=== PATIENT | female | born 1985 | race Caucasian/White ===

== ENCOUNTER → 2017-12-24 08:34 | Outpatient (CLI) | payer OTHER, SELFPAY ==
[2017-12-24 09:19] LABS: hCG Titer Quant., Serum 255 mIU/mL (<9 non-preg)
[2017-12-24 09:27] LABS: Free T3 2.2 pg/mL (2.18-3.98); T4 Free Direct 1.04 ng/dL (0.76-1.46); Thyroid Stim Hormone (TSH) 2.42 uIU/mL (0.358-3.74)
== END ==
PROVIDERS: Nurse Practitioner
DX: E03.9 Hypothyroidism, unspecified (principal); O03.9 Complete or unspecified spontaneous abortion without complication
CPT/HCPCS: 36415; 84439; 84443; 84481; 84702

== ENCOUNTER → 2017-12-30 09:03 | Outpatient (CLI) | payer OTHER, SELFPAY ==
[2017-12-30 09:41] LABS: hCG Titer Quant., Serum 19 mIU/mL (<9 non-preg)
== END ==
DX: O03.9 Complete or unspecified spontaneous abortion without complication (principal)
CPT/HCPCS: 36415; 84702

== ENCOUNTER → 2018-01-07 09:44 | Outpatient (CLI) | payer OTHER, SELFPAY ==
[2018-01-07 10:36] LABS: hCG Titer Quant., Serum 2 mIU/mL (<9 non-preg)
== END ==
DX: O03.9 Complete or unspecified spontaneous abortion without complication (principal)
CPT/HCPCS: 36415; 84702

== ENCOUNTER → 2018-01-14 16:26 | Outpatient (CLI) | payer OTHER, SELFPAY ==
[2018-01-14 17:22] LABS: Prolactin 12.3 ng/mL
[2018-01-17 16:08] LABS: Dilute Prothrombin Time (dPT) 42.6 sec (0.0-55.0); PTT-LA 43.3 sec (0.0-51.9); Thrombin Time 20.3 sec (0.0-23.0); dPT Confirm Ratio 0.92 Ratio (0.00-1.40)
[2018-01-19 11:33] LABS: Interpretation Comment: (.)
== END ==
DX: N96 Recurrent pregnancy loss (principal)
CPT/HCPCS: 36415; 84146

== ENCOUNTER → 2018-03-18 10:18 | Outpatient (CLI) | payer OTHER, SELFPAY ==
--- NOTE | 2018-03-18 10:20 | US_ITS ---
STUDY: THYROID ULTRASOUND REASON FOR EXAM: Female, 33 years old. History of thyroid nodule. TECHNIQUE: Ultrasound evaluation of the thyroid was performed with real-time and static najera-scale imaging. COMPARISON: None. FINDINGS: RIGHT LOBE: The right lobe of the thyroid gland measures 4.2 cm x 1.5 cm x 1.4 cm. There is a heterogeneous echotexture. There are no demonstrated solid, cystic or complex lesions. LEFT LOBE: The left lobe of the thyroid gland measures 4.8 cm x 2.2 cm x 1.9 cm. There is a heterogeneous echotexture. There is a 3.3 cm x 2.0 cm x 1.4 cm complex solid and cystic thyroid nodule in the mid and lower pole of the left lobe of the thyroid. A biopsy is recommended for further evaluation. ISTHMUS: The isthmus is thickened and measures 7.0 mm. There is a 1.4 cm x 1.3 cm x 0.6 cm hypoechoic solid nodule in the isthmus. The regional lymph nodes are normal. US/Thyroid IMPRESSION: 3.3 cm x 2.0 cm x 1.4 cm complex solid and cystic nodule in the mid and inferior pole of the left lobe of the thyroid as described. A biopsy is recommended for further evaluation. Enlargement of the isthmus with a solid nodule in the isthmus. Electronically Signed: Mario Cramer MD at 14:24 EDT Tel [phone], Service support ,
== END ==
PROVIDERS: Visit Provider Surgery
DX: E04.1 Nontoxic single thyroid nodule (principal)
CPT/HCPCS: 76536

== ENCOUNTER → 2018-08-23 14:28 | Outpatient (CLI) | payer BC, SELFPAY ==
--- NOTE | 2018-08-23 14:30 | RAD_ITS ---
STUDY: X-RAY CHEST REASON FOR EXAM: Female, 33 years old. Cough. History of bronchitis. TECHNIQUE: PA and lateral views of the chest. COMPARISON: Comparison is made with prior study dated January 24, 2010. FINDINGS: The lungs are clear and expanded. There is no demonstrated pleural abnormality. Normal size heart. Normal mediastinum and artis. Normal visualized pulmonary arteries. Normal visualized aortic arch and descending thoracic aorta. Normal visualized thoracic spine. Normal visualized ribs, clavicles, and shoulders. There is no demonstrated abnormality of the visualized soft tissue structures of the upper abdomen. RAD/Chest PA and Lateral IMPRESSION: Normal x-ray examination of the chest. Electronically Signed: Mario Cramer MD at 14:49 EDT Tel [phone], Service support ,
== END ==
PROVIDERS: Family Provider Student in an Organized Health Care Education/Training Program; PCP Student in an Organized Health Care Education/Training Program; Referring Provider Physician Assistant Surgical; Visit Provider Physician Assistant Surgical
DX: J40 Bronchitis, not specified as acute or chronic (principal)
CPT/HCPCS: 71046

== ENCOUNTER 2020-05-14 15:41 | Emergency (ER) | payer BC, SELFPAY ==
[2020-05-14 15:42] VITALS: BP 149/114; PULSE 141; RESP 20; TEMP 36.9; O2SAT 95; BMI 34.1
--- NOTE | 2020-05-14 15:48 | EKG12_ITS ---
Test Reason : PALPS Blood Pressure : / mmHG Vent. Rate : 126 BPM Atrial Rate : 126 BPM P-R Int : 150 ms QRS Dur : 084 ms QT Int : 302 ms P-R-T Axes : 045 007 014 degrees QTc Int : 437 ms Sinus tachycardia Otherwise normal ECG Confirmed by MAHNAZ TURK ([id number]), video news editor PENELOPE ARIAS ([id number]) on 05/20/2020 12:09:49 PM Referred By: RENEE Confirmed By:MAHNAZ TURK
--- NOTE | 2020-05-14 15:49 | CT_ITS ---
STUDY: CTA CHEST REASON FOR EXAM: Female, 35 years old. DIZZY LIGHT HEADED, ?PE, FEELS LIKE SHE HAS A FAST HEART BEAT RADIATION DOSAGE (If Supplied By Facility): CTDIvol = ( 14.25 ) mGy, DLP = ( 437.31 ) mGycm TECHNIQUE: The examination was performed with the intravenous administration of IV 100mL Isovue-370. Post-processing of the angiographic images was performed, with multiplanar reformation and 3D reconstruction. Individualized dose optimization techniques were used for this CT. COMPARISON: None. FINDINGS: Normal enhancement of the main pulmonary artery and right and left pulmonary arteries. Normal enhancement of the bilateral peripheral pulmonary arteries. There is no demonstrated pulmonary embolism. Normal thoracic aorta and visualized great vessels. There is no demonstrated aortic dissection. Normal heart size and pericardium. Normal mediastinum. Normal hilar regions. Normal visualized trachea and bronchi. The lungs are well expanded. Mild interstitial scarring is present in the medial aspect of the left lower lobe. No consolidation or pulmonary edema or pleural effusion. No lung nodules. Normal pleura. Normal chest wall structures. Normal osseous structures. Benign-appearing sclerosis and bony excrescence seen around the superior endplate and Holley''s canal vertebral canal in the T12 vertebral body. Unremarkable visualized upper abdomen. CT/CTA Chest W/WO Contrast IMPRESSION: 1. No demonstrated pulmonary embolism or arterial dissection. 2. Mild interstitial scarring is present in the medial aspect of the left lower lobe. 3. No consolidation or pulmonary edema or pleural effusion. No lung nodules. Electronically Signed: Joaquin Rodriguez MD at 17:12 EDT , Service support ,
--- NOTE | 2020-05-14 15:58 | ED.VIS.GEN ---
History of Present Illness Chief Complaint: Palpitations Informant: Patient Onset: Days Context: Gradual Onset Timing: Intermittent Current Severity: Moderate Maximum Severity: Moderate Narrative: The patient is an otherwise healthy female with history of hypothyroidism that presents to the emergency department with heart racing, shortness of breath, near syncope. Patient states that a few days ago, she felt mildly nauseated and had some abdominal cramping. She states her nausea had improved. And she was not feeling fatigued or short of breath. She states she went to work today, and felt like her heart was racing. She states she got lightheaded and felt like she was going to pass out. She states when she stands, she does feel short of breath. She states that she thought that her blood sugar may have been low so she did eat but it did not really change her symptoms. She denies any delaney chest pain. She is not had fevers or chills. She denies any weight loss or night sweats. She states she is otherwise been in her normal state of health. Prior similar symptoms: No Recent Illness/Hospitalization: No Past Medical History - Allergies and Home Meds Allergies/Adverse Reactions: Allergies No Known Allergies Allergy (Verified 05/14/20 15:43) Primary Care Physician: Ayo Knight MD [STAFF PHYSICIAN] - Prior records reviewed: Yes Past Medical History: - - Thyroid disease Surgical History: noncontributory Smoking Status: Never smoker Review of Systems General: Reports: Malaise. Denies: Chills, Fever, Sweats Eyes: Denies: Visual changes - bilaterally, Diplopia ENT: Denies: Rhinorrhea, Sore throat Cardiovascular: Reports: Palpitations. Denies: Chest pain Respiratory: Denies: Dyspnea, Cough, Dyspnea on exertion Gastrointestinal: Reports: Nausea. Denies: Abdominal pain, Vomiting, Diarrhea, Melena, Hematochezia Genitourinary: Denies: Dysuria, Hematuria, Frequency Musculoskeletal: Denies: Back pain, Extremity Pain Skin: Denies: Rash, Wounds Neurological: Denies: Headache, Weakness, Numbness Physical Exam Vital Signs/Narrative: Vital Signs Temp Pulse Resp BP Pulse Ox 05/14/20 15:42 98.4 F 141 H 20 H 149/114 H 95 Inital Vital Signs reviewed: Yes General: Well nourished, Well developed, No Acute Distress Head: Normocephalic, Atraumatic Eyes: Perrl, EOMI ENT: Moist mucous membranes, No rhinorrhea Neck: Supple, Nontender Cardiovascular: Regular rhythm, No murmurs, Tachycardia Respiratory: No distress, CTA bilaterally, Chest nontender Abdomen: Soft, Nontender, Nondistended, Normal bowel sounds Back: Nontender, Normal Inspection Extremities: Nontender, No edema Skin: Normal color, No rash Neurological: Alert, Oriented x3, Cranial nerves II-XII grossly intact, Normal Strength, Normal Sensation Psychological: Normal affect, Normal Mood Diagnostic/Tx/Re-eval Clinical Impression(s) from Imaging Studies Chest CTA 05/14/20 15:49 IMPRESSION: 1. No demonstrated pulmonary embolism or arterial dissection. 2. Mild interstitial scarring is present in the medial aspect of the left lower lobe. 3. No consolidation or pulmonary edema or pleural effusion. No lung nodules. Electronically Signed: Joaquin Rodriguez MD at 17:12 EDT , Service support , Abnormal Lab Results 05/14/20 05/14/20 05/14/20 15:55 15:55 15:55 WBC 8.1 RBC 4.79 Hgb 15.0 Hct 44.0 MCV 91.9 MCH 31.3 MCHC 34.1 RDW Std Deviation 39.6 RDW Coeff of Lukas 11.7 Plt Count 332 MPV 10.1 Immature Gran % (Auto) 0.200 Neut % (Auto) 60.2 Lymph % (Auto) 28.6 [place] % (Auto) 7.3 Eos % (Auto) 3.1 Baso % (Auto) 0.6 Absolute Neuts (auto) 4.9 Absolute Lymphs (auto) 2.32 Nucleated RBC % 0 Sodium 139 Potassium 3.4 L Chloride 108 H Carbon Dioxide 25.0 Anion Gap 6 BUN 12 Creatinine 0.84 Estim Creat Clear Calc 73.93 Est GFR (MDRD) Af Amer 100 Est GFR (MDRD) Non-Af 82 BUN/Creatinine Ratio 14.3 Glucose 111 H Calcium 8.6 Magnesium 2.1 Total Bilirubin 0.30 AST 18 ALT 34 Alkaline Phosphatase 56 Troponin I < 0.015 B-Natriuretic Peptide 17.5 Total Protein 7.8 Albumin 3.9 Globulin 3.9 Albumin/Globulin Ratio 1.0 TSH 1.51 Urine Test 05/14/20 16:50 WBC RBC Hgb Hct MCV MCH MCHC RDW Std Deviation RDW Coeff of Lukas Plt Count MPV Immature Gran % (Auto) Neut % (Auto) Lymph % (Auto) [place] % (Auto) Eos % (Auto) Baso % (Auto) Absolute Neuts (auto) Absolute Lymphs (auto) Nucleated RBC % Sodium Potassium Chloride Carbon Dioxide Anion Gap BUN Creatinine Estim Creat Clear Calc Est GFR (MDRD) Af Amer Est GFR (MDRD) Non-Af BUN/Creatinine Ratio Glucose Calcium Magnesium Total Bilirubin AST ALT Alkaline Phosphatase Troponin I B-Natriuretic Peptide Total Protein Albumin Globulin Albumin/Globulin Ratio TSH Urine Test Negative - Rhythm Strip Rhythm Strip: Sinus Tach Rate: 120 Ectopy: None - EKG Initial EKG Interpretation: No Acute Injury Pattern, Sinus Tachycardia Prior: No Prior Follow-up EKG Interpretation: Sinus Rhythm, Sinus Arrythmia Prior: Unchanged - Medical Decision Making The patient is a 35-year-old female with history of thyroid disease that presents to the emergency department with palpitations. Initially, in triage, her heart rate was 141. She has normal mental status. She is perfusing normally. EKG was obtained which showed sinus tachycardia at a rate of 26 without acute ischemic change. Broad metabolic work-up was pursued. Without any intervention, the patient's heart rate had decreased into the 90s. Repeat EKG shows sinus arrhythmia with a rate of 86 without acute ischemia. Metabolic panel was obtained. This is unremarkable. I obtained a CTA of the chest given the patient's near syncope and tachycardia. This was also negative. Her potassium was replaced because it was 3.4. I did have a long conversation with Dr. Knight about the patient. At this time, we are going to hold on any medication. She is going to be set up with a 48-hour Holter monitor and will be seen in the office for echo. She is comfortable with this plan of care. Impression 1. Sinus tachycardia 2. Generalized illness ED Disposition - Plan for ED Patient: Instructions: ED Tachycardia PAT Referrals: Ayo Knight MD [STAFF PHYSICIAN] -
[2020-05-14] MEDS: 0.9% Normal Saline 1,000 ML 1000 ML IV ×2 (16:09→17:14)
[2020-05-14 16:10] LABS: Absolute Lymphocyte Count 2.32 X10^3/uL (0.83-4.51); Absolute Neutrophil Count 4.9 X10^3/uL (2.0-7.7); Basophil# 0.05 X10^3/uL; Basophil% 0.6 % (0-1); Eosinophil# 0.25 X10^3/uL; Eosinophils% 3.1 % (0-5); Lymphocyte # 2.32 X10^3/ul (4.0); Lymphocyte % 28.6 % (19-41); Mean Corp Hgb Conc 34.1 g/dL (32-36); Mean Corpuscular Hgb 31.3 pg (27.0-32.0); Mean Corpuscular Volume 91.9 fL (81-99); Mean Platelet Vol. 10.1 fl (6.2-12.0); Monocyte# 0.59 X10^3/uL; Monocyte% 7.3 % (0-10); NRBC Flagged by Analyzer 0 % (0-5); Neutrophil # 4.87 X10^3/uL (2.7-7.7); Neutrophil % 60.2 % (47-70); Platelet Count 332 K/mm3 (150-450); RBC Distribution Width CV 11.7 % (11.6-14.6); RBC Distribution Width SD 39.6 fl (35.1-43.9); Red Blood Count 4.79 M/mm3 (4.2-5.4); White Blood Count 8.1 K/mm3 (4.4-11.0)
--- NOTE | 2020-05-14 16:19 | EKG12_ITS ---
Test Reason : REPEAT Blood Pressure : / mmHG Vent. Rate : 081 BPM Atrial Rate : 081 BPM P-R Int : 126 ms QRS Dur : 090 ms QT Int : 404 ms P-R-T Axes : 042 007 009 degrees QTc Int : 469 ms Normal sinus rhythm with sinus arrhythmia Normal ECG Confirmed by MAHNAZ TURK ([id number]), publishing editor PENELOPE ARIAS ([id number]) on 05/20/2020 12:14:44 PM Referred By: RENEE Confirmed By:MAHNAZ TURK
[2020-05-14 16:30] VITALS: BP 126/76; PULSE 76; RESP 16
[2020-05-14 16:38] LABS: AST(SGOT) 18 U/L (15-37); Alanine Aminotransfer ALT/SGPT 34 U/L (13-56); Albumin, Serum 3.9 g/dL (3.2-5.0); Alkaline Phosphatase 56 U/L (45-117); Anion Gap 6 (5-15); BUN 12 mg/dL (7-18); BUN/Creat Ratio 14.3 RATIO (10-20); Calcium,Total 8.6 mg/dL (8.5-10.1); Chloride 108 mmol/L (98-107); Creatinine, Serum 0.84 mg/dL (0.55-1.02); EST Glomerular Filtration Rate 82 mL/min (>60); Est Glom Filt Rate - Afr Amer 100 mL/min (>60); Estimated Creatinine Clearance 73.93 ml/min; Globulin 3.9 g/dL (2.2-4.2); Glucose 111 mg/dL (74-106); Magnesium 2.1 mg/dL (1.6-2.6); Potassium 3.4 mmol/L (3.5-5.1); Protein, Total 7.8 g/dL (6.4-8.2); Sodium Level 139 mmol/L (136-145); Thyroid Stim Hormone (TSH) 1.51 uIU/mL (0.358-3.74)
[2020-05-14 16:40] LABS: BNP,B-Type NATRIURETIC PEPTIDE 17.5 pg/mL (0-100)
[2020-05-14 17:13] VITALS: BP 135/83; PULSE 98; RESP 20; O2SAT 100
[2020-05-14 17:14] LABS: Internal QC Validated? YES +Cl - CLEAR BKGD; Pregnancy, Urine Negative Negative
[2020-05-14 18:21] VITALS: BP 130/80; PULSE 92; RESP 16; O2SAT 99
== END 2020-05-14 18:23 | disposition home or self-care (01) ==
LOC: ED 15:56
PROVIDERS: Emergency Provider Emergency Medicine; PCP Student in an Organized Health Care Education/Training Program
DX: R00.0 Tachycardia, unspecified (principal); E03.9 Hypothyroidism, unspecified; Z79.899 Other long term (current) drug therapy
CPT/HCPCS: 71275; 80053; 81025; 83735; 83880; 84443; 84484; 85025; 93005; 96360; 96361; 99285; J7030; Q9967; A4216

== ENCOUNTER → 2020-05-14 | Outpatient (CLI) | payer BC, SELFPAY ==
[2020-05-14 15:42] VITALS: BMI 34.1
== END | disposition home or self-care (01) ==
PROVIDERS: PCP Student in an Organized Health Care Education/Training Program; Visit Provider Internal Medicine Cardiovascular Disease
DX: R00.2 Palpitations (principal)
CPT/HCPCS: 93226

== ENCOUNTER 2020-11-14 10:00 | Outpatient (RCR) | payer BC, SELFPAY ==
[2020-07-04 15:53] VITALS: BMI 34.4
== END 2020-11-14 23:59 ==
LOC: IMMUN 10:00
PROVIDERS: PCP Student in an Organized Health Care Education/Training Program; Visit Provider Family Medicine
DX: Z23 Encounter for immunization (principal)
CPT/HCPCS: 0011A; 0012A; 91301

== ENCOUNTER 2022-03-23 01:58 | Emergency (ER) | payer OTHER, SELFPAY ==
[2022-03-23 01:58] VITALS: BP 157/114; PULSE 112; RESP 20; TEMP 36.8; O2SAT 98; BMI 39.1
--- NOTE | 2022-03-23 02:31 | EDS_ITS ---
HPI History of Present Illness Chief Complaint: Abd Pain Informant: patient Narrative Narrative: Patient presents with upper abdominal pain more on the right. Patient states that this afternoon she ate out at a restaurant. It was somewhat rich food. She had some abdominal pain and cramping mostly in the upper and upper right part of the abdomen. It went on for 1 to 2 hours. It then got better. After eating dinner it came back. Its been here waxing and waning and cramping ever since about 7 PM. No chest pain or trouble breathing. No pain in the lower abdomen or pelvis. No back or flank pain. She did vomit some bile a single time. She is still nauseated. No diarrhea. No urinary symptoms. Patient has been having episodes like this for about a year. She states normally they will last anywhere 1 to 4 hours and then go away. She has been trying to adjust diet and foods to see what is causing it. But this episode is lasting a lot longer than the others. It does not sound like she has had work- up for biliary disease or gallstones yet. [facility] Medical History Bronchitis Environmental allergies Fatigue Foreign body in left ear Hypothyroidism infertility procedures Palpitations PCOS (polycystic ovarian syndrome) Sinus tachycardia SOB (shortness of breath) Home Medications levothyroxine 100 mcg PO DAILY 05/14/20 [History Last Taken Unknown] ondansetron 4 mg PO Q8H PRN #10 tab 03/23/22 [Rx Last Taken Unknown] oxycodone-acetaminophen [Percocet] 1 tab PO Q6H PRN 3 Days #10 tab 03/23/22 [Rx Last Taken Unknown] Allergy/AdvReac Type Severity Reaction Status Date / Time No Known Allergies Allergy Verified 07/04/20 15:53 Family History Grandmother CVA (cerebral vascular accident) Heart disease Grandfather Heart disease Grandmother Valvular heart disease Atrial fibrillation Father Valvular heart disease History of aortic root repair Other Lung disease Myocardial infarction Surgical History H/O section Social History Smoking Status: Never smoker second hand exposure: No alcohol intake: never substance use type: does not use caffeine: Yes Type: carbonated beverages Number of servings: 1 and coffee Number of servings: 1 ROS ROS ED Constitutional Constitutional ED: Denies fever(s) or subjective Eyes Eyes: Denies blurry vision ENT ENT ED: Denies rhinorrhea or sore throat Cardiovascular Cardiovascular: Denies chest pain, palpitations or racing heartbeat Respiratory/Chest Respiratory/Chest: Denies cough, dyspnea or sputum Gastrointestinal Gastrointestinal: Reports abdominal pain, nausea and vomiting; Denies constipation, diarrhea or melena Genitourinary Genitourinary ED: Denies dysuria or hematuria Musculoskeletal Musculoskeletal: Denies back pain Integumentary Denies rash Neurologic Neurologic: Denies headache(s) Endocrine Endocrinology: Denies polydipsia or polyuria Allergic/Immunologic Allergic/Immunologic ED: Denies urticaria EXAM Physical Exam Const Vital Signs: 03/23/22 01:58 Temperature 98.2 F Temperature Source Oral Pulse Rate 112 H Respiratory Rate 20 H Blood Pressure 157/114 H Blood Pressure Mean 128 Pulse Ox 98 Oxygen Delivery Method Room Air Positive well nourished and well developed General Appearance ED: well developed and NAD; Negative for cyanotic or diaphoretic HEENT Reports moist mucous membranes Eyes General Eye ED: Negative for pale conjunctiva or scleral icterus Neck no JVD Chest Wall inspection of chest normal Resp normal respiratory effort and clear to auscultation bilaterally Effort and Inspection: Negative for pain with movement Auscultation: Negative for rales, rhonchi or wheezes Cardio regular rate and regular rhythm GI normal to inspection, nondistended, normoactive bowel sounds and non-distended GI Narrative: Abdomen does have some tenderness mostly toward the right upper quadrant and slightly epigastric. None anywhere else in the abdomen though. There is no rebound or guarding. James sign is equivocal. Palpation: soft Back/Spine no CVA tenderness Extremity General Extremety ED: Negative for tenderness Neuro oriented x3 Sensorium / Orientation: alert Psych mental status grossly normal Skin no rashes or lesions noted MDM MDM MDM Narrative Medical decision making narrative: Patient CBC is normal. Electrolytes and liver function test are all normal. Patient's recheck. Symptoms are resolved. Her abdomen is benign. She states nausea is 100% gone. She still has a small amount of soreness in the abdomen but is markedly improved. I talked options with the patient. I explained that I do not have the ability to get ultrasound here tonight. We could get a CAT scan but an ultrasound would likely be the ideal study for her. I could certainly keep her here overnight and we can get a CAT scan likely at about 7 or so in the morning. We could also have her follow-up with her private physician and have outpatient ultrasound. She is comfortable with this plan. She states she is feeling a lot better and has had episodes like this for a while. This 1 just lasted longer. I think this is a reasonable option. If she develops worsening pain, fevers, vomiting or other symptoms she should return. I will get her some medicine for pain and nausea in case she needs it at home but at this point she would not take it. Lab Data Attestation: I reviewed the patient's lab results. Labs: Laboratory Results - last 24 hr 03/23/22 03/23/22 02:10 02:10 WBC 10.1 RBC 4.76 Hgb 14.5 Hct 43.4 MCV 91.2 MCH 30.5 MCHC 33.4 RDW Std Deviation 40.0 RDW Coeff of Lukas 12.0 Plt Count 324 MPV 10.2 Immature Gran % (Auto) 0.400 Neut % (Auto) 59.6 Lymph % (Auto) 25.3 [place] % (Auto) 7.9 Eos % (Auto) 6.1 H Baso % (Auto) 0.7 Absolute Neuts (auto) 6.0 Absolute Lymphs (auto) 2.55 Nucleated RBC % 0 Sodium 138 Potassium 4.0 Chloride 104 Carbon Dioxide 29.0 Anion Gap 5 BUN 17 Creatinine 0.87 Estim Creat Clear Calc 70.02 Est GFR (MDRD) Af Amer 94 Est GFR (MDRD) Non-Af 78 BUN/Creatinine Ratio 19.5 Glucose 114 H Calcium 9.4 Total Bilirubin 0.30 AST 21 ALT 31 Alkaline Phosphatase 81 Total Protein 7.2 Albumin 3.6 Globulin 3.6 Albumin/Globulin Ratio 1.0 Lipase 173 Discharge Plan Triage Chief Complaint: Abd Pain ED Provider: Hi Bryan Dx/Rx/DC Orders Clinical Impression: Biliary colic Instructions: ED Gallstones with Biliary Colic Prescriptions: New oxycodone-acetaminophen [Percocet] 5-325 mg tablet 1 tab PO Q6H PRN (Reason: pain) 3 Days Qty: 10 RF: 0 ondansetron 4 mg tablet,disintegrating 4 mg PO Q8H PRN (Reason: nausea and vomiting) Qty: 10 RF: 0 No Action levothyroxine 100 MCG tablet 100 mcg PO DAILY RF: 0 Primary Care Provider: Patrick Tejada Referrals: Dariel Phelan MD [STAFF PHYSICIAN] - As soon as possible Patrick Tejada DO [Primary Care Provider] - As soon as possible Disposition Disposition: Home, Self Care
[2022-03-23] MEDS: 0.9% Normal Saline 1,000 ML 1000 ML IV (02:39)
[2022-03-23] MEDS: Ketorolac 15 MG/ML Vial IV (02:40)
[2022-03-23] MEDS: Ondansetron 4 MG/2 ML Vial IV (02:40)
[2022-03-23 02:43] LABS: Absolute Lymphocyte Count 2.55 X10^3/uL (0.83-4.51); Basophil# 0.07 X10^3/uL; Basophil% 0.7 % (0-1); Eosinophil# 0.61 X10^3/uL; Eosinophils% 6.1 % (0-5); Hematocrit 43.4 % (37-47); Hemoglobin 14.5 g/dL (12.0-15.0); Lymphocyte # 2.55 X10^3/ul (0.83-4.51); Lymphocyte % 25.3 % (19-41); Mean Corp Hgb Conc 33.4 g/dL (32-36); Mean Corpuscular Hgb 30.5 pg (27.0-32.0); Mean Corpuscular Volume 91.2 fL (81-99); Mean Platelet Vol. 10.2 fl (6.2-12.0); Monocyte# 0.79 X10^3/uL; Monocyte% 7.9 % (0-10); NRBC Flagged by Analyzer 0 % (0-5); Neutrophil % 59.6 % (47-70); Platelet Count 324 K/mm3 (150-450); Red Blood Count 4.76 M/mm3 (4.2-5.4); White Blood Count 10.1 K/mm3 (4.4-11.0)
[2022-03-23 03:00] LABS: AST(SGOT) 21 U/L (15-37); Alanine Aminotransfer ALT/SGPT 31 U/L (13-56); Albumin, Serum 3.6 g/dL (3.2-5.0); Alkaline Phosphatase 81 U/L (45-117); Anion Gap 5 (5-15); BUN 17 mg/dL (7-18); BUN/Creat Ratio 19.5 RATIO (10-20); Calcium,Total 9.4 mg/dL (8.5-10.1); Chloride 104 mmol/L (98-107); Creatinine, Serum 0.87 mg/dL (0.55-1.02); EST Glomerular Filtration Rate 78 mL/min (>60); Est Glom Filt Rate - Afr Amer 94 mL/min (>60); Estimated Creatinine Clearance 70.02 ml/min; Globulin 3.6 g/dL (2.2-4.2); Glucose 114 mg/dL (74-106); Lipase 173 U/L (73-393); Protein, Total 7.2 g/dL (6.4-8.2); Sodium Level 138 mmol/L (136-145)
[2022-03-23 04:17] VITALS: BP 130/83; PULSE 67; RESP 16; O2SAT 96
== END 2022-03-23 04:20 | disposition home or self-care (01) ==
PROVIDERS: Emergency Provider Emergency Medicine; PCP Student in an Organized Health Care Education/Training Program; Visit Provider Emergency Medicine
DX: K80.50 Calculus of bile duct without cholangitis or cholecystitis without obstruction (principal); R11.14 Bilious vomiting; E03.9 Hypothyroidism, unspecified
CPT/HCPCS: 80053; 83690; 85025; 96361; 96374; 96375; 99283; A4216; J2405

== ENCOUNTER 2022-06-01 04:48 | Emergency (ER) | payer OTHER, SELFPAY ==
[2022-06-01 04:51] VITALS: BP 151/122; PULSE 113; RESP 20; TEMP 36.9; O2SAT 99; BMI 37.8
--- NOTE | 2022-06-01 05:13 | US_ITS ---
STUDY: FIRST TRIMESTER OBSTETRICAL ULTRASOUND REASON FOR EXAM: Female, 37 years old RLQ pain with -- slight spotting -- [id number] LMP: Unknown. TECHNIQUE: Transabdominal and Transvaginal TECHNICAL QUALITY: Adequate. PRIOR ULTRASOUND: None. FINDINGS: There is no demonstrated intrauterine or extrauterine gestational sac. There is no demonstrated embryo ( pole). The uterus measures 10.6 x 7.2 x 5.4 cm. There is no demonstrated uterine fibroid. The cervix is closed. The right ovary measures 4.8 x 4.1 x 2.6 cm. There is a simple 2.2 x 2.1 x 1.2 cm cyst. There is no visualized right adnexal mass or complex lesion. The left ovary is not visualized There is minimal fluid in the cul de sac, likely physiologic. US/Transvaginal w/Preg US IMPRESSION: No sonographic evidence of intra or extrauterine gestation. Simple right ovarian cyst, no suspicious adnexal mass, there is a small amount of free fluid which is likely physiologic. Left ovary not visualized Electronically Signed: Nicholas Perez MD at 8:14 EDT ,
[2022-06-01 05:29] LABS: Mucous, Urine 0 SEEN /hpf (<or=2+); Red Blood Cells-Urine 0 SEEN /hpf (0-5); White Blood Cells 0 SEEN /hpf (0-5)
[2022-06-01 05:31] LABS: Absolute Lymphocyte Count 2.31 X10^3/uL (0.83-4.51); Absolute Neutrophil Count 5.7 X10^3/uL (2.0-7.7); Basophil# 0.04 X10^3/uL; Basophil% 0.4 % (0-1); Eosinophil# 0.23 X10^3/uL; Eosinophils% 2.6 % (0-5); Hematocrit 41.9 % (37-47); Hemoglobin 14.1 g/dL (12.0-15.0); Lymphocyte # 2.31 X10^3/ul (0.83-4.51); Lymphocyte % 25.7 % (19-41); Mean Corp Hgb Conc 33.7 g/dL (32-36); Mean Corpuscular Hgb 31.1 pg (27.0-32.0); Mean Corpuscular Volume 92.3 fL (81-99); Mean Platelet Vol. 10.2 fl (6.2-12.0); Monocyte# 0.72 X10^3/uL; NRBC Flagged by Analyzer 0 % (0-5); Neutrophil # 5.65 X10^3/uL (2.7-7.7); Neutrophil % 62.9 % (47-70); Platelet Count 298 K/mm3 (150-450); RBC Distribution Width CV 12.5 % (11.6-14.6); RBC Distribution Width SD 42.4 fl (35.1-43.9); Red Blood Count 4.54 M/mm3 (4.2-5.4)
[2022-06-01 05:53] LABS: Color, Urine Yellow (Yellow); Glucose, Dipstick Normal (Normal); Ketone-Dipstick Negative (Negative); Leukocyte Esterase-Dipstick Negative /ul (Negative); Nitrite-Dipstick Negative (Negative); Occult Blood-Urine 25 /ul (Negative); Protein-Dipstick Negative (Negative); Urine Bilirubin Dipstick Negative (Negative); Urine Clarity Clear (Clear); Urine Urobilinogen Normal (Normal)
[2022-06-01 05:59] LABS: Bacteria 1+ /hpf (None Seen); Squamous Epithelial Cells - UA 0-5 SEEN /hpf (5-10)
[2022-06-01 06:03] LABS: Anion Gap 7 (5-15); BUN 11 mg/dL (7-18); BUN/Creat Ratio 15.7 RATIO (10-20); Calcium,Total 8.5 mg/dL (8.5-10.1); Chloride 103 mmol/L (98-107); EST Glomerular Filtration Rate 100 mL/min (>60); Est Glom Filt Rate - Afr Amer 121 mL/min (>60); Estimated Creatinine Clearance 87.03 ml/min; Glucose 117 mg/dL (74-106); Potassium 3.6 mmol/L (3.5-5.1); Sodium Level 136 mmol/L (136-145)
--- NOTE | 2022-06-01 06:22 | EDS_ITS ---
HPI HPI - Female History of Present Illness Chief Complaint: Female C/O Narrative Narrative: Patient is a 37-year-old female with past medical history of hypothyroidism who is a G6, P1 female with 4 previous spontaneous abortions. She states she is approximately 5 weeks and states she has been doing well but noticed that her last hCG value is not doubled. She states that this morning she awoke from sleep and has sharp stabbing pain in the right lower quadrant. She states after the pain came on she did have a bout of nausea and vomiting. She reports that based on her history she is concerned that she could be miscarrying or have an ectopic as she has not experienced this type of pain with her previous miscarriages and secondary to this comes in for evaluation. The patient denies any fevers or chills she denies any vaginal bleeding or discharge and she denies any dysuria PFSH PFSH Medical History Bronchitis Environmental allergies Fatigue Foreign body in left ear Hypothyroidism infertility procedures Palpitations PCOS (polycystic ovarian syndrome) Sinus tachycardia SOB (shortness of breath) Home Medications levothyroxine 100 mcg tablet 100 mcg PO DAILY 05/14/20 [History Last Taken Unknown] Allergy/AdvReac Type Severity Reaction Status Date / Time No Known Allergies Allergy Verified 07/04/20 15:53 Family History Grandmother CVA (cerebral vascular accident) Heart disease Grandfather Heart disease Grandmother Valvular heart disease Atrial fibrillation Father Valvular heart disease History of aortic root repair Other Lung disease Myocardial infarction Surgical History H/O section Social History Smoking Status: Never smoker second hand exposure: No alcohol intake: never substance use type: does not use caffeine: Yes Type: carbonated beverages Number of servings: 1 and coffee Number of servings: 1 ROS ROS ED Constitutional Constitutional ED: Denies chills or fever(s) ENT ENT ED: Denies sore throat Cardiovascular Cardiovascular: Denies chest pain Respiratory/Chest Respiratory/Chest: Denies cough or dyspnea Gastrointestinal Gastrointestinal: Reports abdominal pain, nausea and vomiting; Denies diarrhea Genitourinary Genitourinary ED: Denies dysuria or hematuria Musculoskeletal Musculoskeletal: Denies myalgias Integumentary Denies rash Neurologic Neurologic: Denies headache(s) Hematologic/Lymphatic Hematologic/Lymphatic: Denies easy bleeding or easy bruising EXAM Physical Exam Const Vital Signs: 06/01/22 04:51 Temperature 98.4 F Temperature Source Oral Pulse Rate 113 H Respiratory Rate 20 H Blood Pressure 151/122 H Blood Pressure Mean 131 Pulse Ox 99 Oxygen Delivery Method Room Air Positive well nourished and well developed General Appearance ED: well developed Eyes PERRL and EOMs intact bilaterally Neck supple Resp normal respiratory effort and clear to auscultation bilaterally Cardio regular rate and regular rhythm Rate: other Other Details: Radial pulses are plus 2 out of 4 bilaterally are equal and symmetric GI non-distended GI Narrative: Abdomen is soft and nondistended with normoactive bowel sounds. There is pain on palpation in the right lower quadrant with voluntary guarding. No rebound or rigidity. No pulsatile mass Auscultation: normoactive bowel sounds Palpation: soft Back/Spine no CVA tenderness Extremity normal to inspection Extremity Narrative: No asymmetric edema no pitting edema negative Homans' sign bilaterally Neuro oriented x3 and CN's II-XII intact bilaterally Sensorium / Orientation: alert Psych mental status grossly normal Skin no rashes or lesions noted MDM MDM MDM Narrative Medical decision making narrative: Patient arrived to the ER afebrile but had sudden onset right lower quadrant pain. There is concern this could be an obstructed kidney stone versus intestinal infection versus ovarian cyst or ectopic . Secondary to this basic blood work and ultrasound were obtained. Labs revealed no clinically significant finding. The patient was reevaluated after this and she states she has had resolution of her abdominal pain. At this time ultrasound is pending. I believe that based on her laboratory findings that if her ultrasound does not show changes concerning for acute appendicitis and her pain remains resolved that she will be otherwise safe for discharge with outpatient [facility] INSPECTOR follow-up. The patient will be signed out to the oncoming provider Dr. Garcia pending ultrasound results Lab Data Attestation: I reviewed the patient's lab results. Labs: Laboratory Results - last 24 hr 06/01/22 06/01/22 06/01/22 05:04 05:04 05:04 WBC 9.0 RBC 4.54 Hgb 14.1 Hct 41.9 MCV 92.3 MCH 31.1 MCHC 33.7 RDW Std Deviation 42.4 RDW Coeff of Lukas 12.5 Plt Count 298 MPV 10.2 Immature Gran % (Auto) 0.400 Neut % (Auto) 62.9 Lymph % (Auto) 25.7 [place] % (Auto) 8.0 Eos % (Auto) 2.6 Baso % (Auto) 0.4 Absolute Neuts (auto) 5.7 Absolute Lymphs (auto) 2.31 Nucleated RBC % 0 Sodium 136 Potassium 3.6 Chloride 103 Carbon Dioxide 26.0 Anion Gap 7 BUN 11 Creatinine 0.70 Estim Creat Clear Calc 87.03 Est GFR (MDRD) Af Amer 121 Est GFR (MDRD) Non-Af 100 BUN/Creatinine Ratio 15.7 Glucose 117 H Calcium 8.5 HCG, Quant 1835 H Urine Color Urine Clarity Urine pH Ur Specific [place] Urine Protein Urine Glucose (UA) Urine Ketones Urine Occult Blood Urine Nitrite Urine Bilirubin Urine Urobilinogen Ur Leukocyte Esterase Urine RBC Urine WBC Ur Squamous Epith Cells Urine Bacteria Urine Mucus Blood Type 06/01/22 06/01/22 05:10 05:20 WBC RBC Hgb Hct MCV MCH MCHC RDW Std Deviation RDW Coeff of Lukas Plt Count MPV Immature Gran % (Auto) Neut % (Auto) Lymph % (Auto) [place] % (Auto) Eos % (Auto) Baso % (Auto) Absolute Neuts (auto) Absolute Lymphs (auto) Nucleated RBC % Sodium Potassium Chloride Carbon Dioxide Anion Gap BUN Creatinine Estim Creat Clear Calc Est GFR (MDRD) Af Amer Est GFR (MDRD) Non-Af BUN/Creatinine Ratio Glucose Calcium HCG, Quant Urine Color Yellow Urine Clarity Clear Urine pH 6.0 Ur Specific [place] 1.020 Urine Protein Negative Urine Glucose (UA) Normal Urine Ketones Negative Urine Occult Blood 25 H Urine Nitrite Negative Urine Bilirubin Negative Urine Urobilinogen Normal Ur Leukocyte Esterase Negative Urine RBC 0 SEEN Urine WBC 0 SEEN Ur Squamous Epith Cells 0-5 SEEN Urine Bacteria 1+ Urine Mucus 0 SEEN Blood Type O POSITIVE Discharge Plan Triage Chief Complaint: Female C/O ED Provider: Harvey Appiah Dx/Rx/DC Orders Prescriptions: No Action levothyroxine 100 MCG tablet 100 mcg PO DAILY Primary Care Provider: Patrick Tejada Referrals: Patrick Tejada, [Primary Care Provider] -
[2022-06-01 06:27] LABS: hCG Titer Quant., Serum 1835 mIU/mL (1-3)
[2022-06-01 06:50] VITALS: PULSE 80; RESP 18; O2SAT 98
--- NOTE | 2022-06-01 09:37 | EDS_ITS ---
HPI HPI - Female History of Present Illness Chief Complaint: Female C/O PFSH PFSH Medical History Bronchitis Environmental allergies Fatigue Foreign body in left ear Hypothyroidism infertility procedures Palpitations PCOS (polycystic ovarian syndrome) Sinus tachycardia SOB (shortness of breath) Home Medications levothyroxine 100 mcg tablet 100 mcg PO DAILY 05/14/20 [History Last Taken Unknown] Allergy/AdvReac Type Severity Reaction Status Date / Time No Known Allergies Allergy Verified 07/04/20 15:53 Family History Grandmother CVA (cerebral vascular accident) Heart disease Grandfather Heart disease Grandmother Valvular heart disease Atrial fibrillation Father Valvular heart disease History of aortic root repair Other Lung disease Myocardial infarction Surgical History H/O section Social History Smoking Status: Never smoker second hand exposure: No alcohol intake: never substance use type: does not use caffeine: Yes Type: carbonated beverages Number of servings: 1 and coffee Number of servings: 1 EXAM Physical Exam Const Vital Signs: 06/01/22 04:51 06/01/22 06:50 Temperature 98.4 F Temperature Source Oral Pulse Rate 113 H 80 Respiratory Rate 20 H 18 Blood Pressure 151/122 H Blood Pressure Mean 131 Pulse Ox 99 98 Oxygen Delivery Method Room Air Room Air [facility] Lab Data Labs: Laboratory Results - last 24 hr 06/01/22 06/01/22 06/01/22 05:04 05:04 05:04 WBC 9.0 RBC 4.54 Hgb 14.1 Hct 41.9 MCV 92.3 MCH 31.1 MCHC 33.7 RDW Std Deviation 42.4 RDW Coeff of Lukas 12.5 Plt Count 298 MPV 10.2 Immature Gran % (Auto) 0.400 Neut % (Auto) 62.9 Lymph % (Auto) 25.7 Power % (Auto) 8.0 Eos % (Auto) 2.6 Baso % (Auto) 0.4 Absolute Neuts (auto) 5.7 Absolute Lymphs (auto) 2.31 Nucleated RBC % 0 Sodium 136 Potassium 3.6 Chloride 103 Carbon Dioxide 26.0 Anion Gap 7 BUN 11 Creatinine 0.70 Estim Creat Clear Calc 87.03 Est GFR (MDRD) Af Amer 121 Est GFR (MDRD) Non-Af 100 BUN/Creatinine Ratio 15.7 Glucose 117 H Calcium 8.5 HCG, Quant 1835 H Urine Color Urine Clarity Urine pH Ur Specific [place] Urine Protein Urine Glucose (UA) Urine Ketones Urine Occult Blood Urine Nitrite Urine Bilirubin Urine Urobilinogen Ur Leukocyte Esterase Urine RBC Urine WBC Ur Squamous Epith Cells Urine Bacteria Urine Mucus Blood Type 06/01/22 06/01/22 05:10 05:20 WBC RBC Hgb Hct MCV MCH MCHC RDW Std Deviation RDW Coeff of Lukas Plt Count MPV Immature Gran % (Auto) Neut % (Auto) Lymph % (Auto) Power % (Auto) Eos % (Auto) Baso % (Auto) Absolute Neuts (auto) Absolute Lymphs (auto) Nucleated RBC % Sodium Potassium Chloride Carbon Dioxide Anion Gap BUN Creatinine Estim Creat Clear Calc Est GFR (MDRD) Af Amer Est GFR (MDRD) Non-Af BUN/Creatinine Ratio Glucose Calcium HCG, Quant Urine Color Yellow Urine Clarity Clear Urine pH 6.0 Ur Specific [place] 1.020 Urine Protein Negative Urine Glucose (UA) Normal Urine Ketones Negative Urine Occult Blood 25 H Urine Nitrite Negative Urine Bilirubin Negative Urine Urobilinogen Normal Ur Leukocyte Esterase Negative Urine RBC 0 SEEN Urine WBC 0 SEEN Ur Squamous Epith Cells 0-5 SEEN Urine Bacteria 1+ Urine Mucus 0 SEEN Blood Type O POSITIVE Radiography Diagnostic Testing: Clinical Impression(s) from Imaging Studies Obstetrics Ultrasound 06/01/22 05:13 IMPRESSION: No sonographic evidence of intra or extrauterine gestation. Simple right ovarian cyst, no suspicious adnexal mass, there is a small amount of free fluid which is likely physiologic. Left ovary not visualized Electronically Signed: Nicholas Perez MD at 8:14 EDT Reading Location ID and State: [facility] / [place] , Service support , Discharge Plan Triage Chief Complaint: Female C/O ED Provider: Harvey Appiah Dx/Rx/DC Orders Clinical Impression: Pelvic pain in patient at greater than 20 weeks gestation, , threatened Instructions: ED Abdominal Pain, Early , ED Possible Miscarriage ... Prescriptions: No Action levothyroxine 100 MCG tablet 100 mcg PO DAILY Primary Care Provider: Patrick Tejada Referrals: Patrick Tejada DO [Primary Care Provider] - Gela Arthur DO [Med Staff - Active Staff] - As soon as possible Activity Restrictions/Additional Instructions: [facility] office should be contacting you today to schedule an appointment for another 2 days. If you have worsening pain or worsening symptoms please call your MIXOLOGIST and then return to the emergency room. Your quant today was [phone]. Disposition Disposition: Home, Self Care
[2022-06-01 09:51] VITALS: BP 117/75; PULSE 77; RESP 18; O2SAT 97
== END 2022-06-01 09:57 | disposition home or self-care (01) ==
PROVIDERS: Emergency Provider Emergency Medicine; PCP Student in an Organized Health Care Education/Training Program; Visit Provider Emergency Medicine
DX: O20.0 Threatened abortion (principal); R10.31 Right lower quadrant pain; O99.281 Endocrine, nutritional and metabolic diseases complicating pregnancy, first trimester; Z3A.01 Less than 8 weeks gestation of pregnancy; R10.2 Pelvic and perineal pain; E03.9 Hypothyroidism, unspecified; O09.511 Supervision of elderly primigravida, first trimester; O99.891 Other specified diseases and conditions complicating pregnancy; O21.9 Vomiting of pregnancy, unspecified; Z79.899 Other long term (current) drug therapy
CPT/HCPCS: 76817; 80048; 81001; 84702; 85025; 86900; 86901; 99282; A4216

== ENCOUNTER 2024-03-23 08:56 | Emergency (ER) | payer OTHER, SELFPAY ==
[2024-03-23 08:57] VITALS: BP 148/100; PULSE 97; RESP 14; TEMP 36.6; O2SAT 98; BMI 32.6
[2024-03-23 09:33] LABS: Bacteria 0 SEEN /hpf (None Seen); Mucous, Urine 0 SEEN /hpf (<or=2+); Red Blood Cells-Urine 0 SEEN /hpf (0-5); White Blood Cells 0 SEEN /hpf (0-5)
[2024-03-23 09:37] LABS: Absolute Lymphocyte Count 1.66 X10^3/uL (0.83-4.51); Absolute Neutrophil Count 5.2 X10^3/uL (2.0-7.7); Basophil# 0.05 X10^3/uL; Basophil% 0.6 % (0-1); Eosinophil# 0.21 X10^3/uL; Eosinophils% 2.7 % (0-5); Hematocrit 43.7 % (37-47); Hemoglobin 14.6 g/dL (12.0-15.0); Internal QC Validated? YES +Cl - CLEAR BKGD; Lymphocyte # 1.66 X10^3/ul (0.83-4.51); Lymphocyte % 21.5 % (19-41); Mean Corp Hgb Conc 33.4 g/dL (32-36); Mean Corpuscular Hgb 30.4 pg (27.0-32.0); Mean Corpuscular Volume 90.9 fL (81-99); Mean Platelet Vol. 9.8 fl (6.2-12.0); Monocyte% 7.8 % (0-10); NRBC Flagged by Analyzer 0 % (0-5); Neutrophil # 5.18 X10^3/uL (2.7-7.7); Platelet Count 264 K/mm3 (150-450); Pregnancy, Serum, hCG Quali. NEGATIVE Negative; RBC Distribution Width CV 12.2 % (11.6-14.6); RBC Distribution Width SD 40.8 fl (35.1-43.9); Record Kit Lot#, Serum Preg. HCG0000735774; Red Blood Count 4.81 M/mm3 (4.2-5.4); White Blood Count 7.7 K/mm3 (4.4-11.0)
[2024-03-23 09:39] LABS: Color, Urine Yellow (Yellow); Glucose, Dipstick Normal (Normal); Ketone-Dipstick 5 mg/dl (Negative); Leukocyte Esterase-Dipstick Negative /ul (Negative); Nitrite-Dipstick Negative (Negative); Occult Blood-Urine Negative /ul (Negative); Protein-Dipstick 15 mg/dl (Negative); Urine Bilirubin Dipstick Negative (Negative); Urine Clarity Clear (Clear); Urine Urobilinogen 1 mg/dl (Normal); Urine pH 6.5 (5.0 - 8.0)
[2024-03-23 09:43] LABS: Anion Gap 5 (5-15); BUN 13 mg/dL (7-18); BUN/Creat Ratio 16.3 RATIO (10-20); Calcium,Total 9.1 mg/dL (8.5-10.1); Chloride 106 mmol/L (98-107); EST Glomerular Filtration Rate 85 mL/min (>60); Est Glom Filt Rate - Afr Amer 103 mL/min (>60); Estimated Creatinine Clearance 93.09 ml/min; Glucose 92 mg/dL (74-106); Potassium 3.9 mmol/L (3.5-5.1); Sodium Level 137 mmol/L (136-145)
[2024-03-23 09:46] LABS: Squamous Epithelial Cells - UA 0-5 SEEN /hpf (5-10)
--- NOTE | 2024-03-23 10:13 | US_ITS ---
STUDY: ULTRASOUND OF THE FEMALE PELVIS - COMPLETE REASON FOR EXAM: Female, 39 years old. LLQ pain/pelvic pain LMP: March 04, 2024. TECHNIQUE: Transvaginal TECHNICAL QUALITY: Adequate. COMPARISON: Comparison is made with prior study June 01, 2022. FINDINGS: The uterus is anteverted and is in a midline position. The uterus measures 10.2 cm x 5.5 cm x 4.6 cm. There is a Nabothian cyst of the cervix. The endometrium measures 7.4 mm in thickness, and is hyperechoic. There is no demonstrated endometrial mass. There is no demonstrated myometrial mass. I.U.D. - The patient does not have an I.U.D. The right ovary is visualized. The right ovary measures 2.3 cm x 2 cm x 1.6 cm. There is no right ovarian cyst or ovarian mass. There is no visualized right adnexal mass or complex lesion. There is normal arterial and normal venous vascularity. The left ovary is visualized. The left ovary measures 3.1 cm x 3 cm x 2.8 cm. There is no left ovarian cyst or ovarian mass. There is no visualized left adnexal mass or complex lesion. There is normal arterial and normal venous vascularity. There is minimal fluid in the cul-de-sac. US/Transvaginal Non- IMPRESSION: Normal female pelvis. Minimal amount of free fluid is seen in the cul-de-sac. Electronically Signed: Mario Cramer MD at 12:11 EDT ,
[2024-03-23] MEDS: Morphine 4 MG/ML Syringe IV (10:22)
[2024-03-23] MEDS: Ondansetron 4 MG/2 ML Vial IV (10:23)
[2024-03-23] MEDS: 0.9% Normal Saline (1000mL) 1,000 ML 125 ML IV (10:26)
[2024-03-23 10:54] VITALS: BP 114/85; PULSE 80; RESP 18; O2SAT 97
[2024-03-23 12:00] VITALS: BP 113/73; PULSE 88; RESP 18; TEMP 36.6; O2SAT 98
--- NOTE | 2024-03-23 13:37 | CT_ITS ---
STUDY: CT ABDOMEN AND PELVIS WITH CONTRAST REASON FOR EXAM: Female, 39 years old. LLQ abd pain RADIATION DOSAGE (If Supplied By Facility): CTDIvol = ( 13.57 ) mGy, DLP = ( 955.43 ) mGycm TECHNIQUE: Transaxial images were obtained from the dome of the diaphragm to the symphysis pubis without oral contrast. IV 100mL Isovue-300 was administered. Sagittal and coronal images were reconstructed. Individualized dose optimization techniques were used for this CT. COMPARISON: None. FINDINGS: The visualized lung bases are unremarkable. The visualized portions of the heart are within normal limits. Normal liver. Normal gallbladder and extrahepatic biliary system. Normal spleen. Normal pancreas. Normal bilateral adrenal glands. Normal right kidney. Nonobstructive punctate calculus in the mid upper pole calyx of the left kidney. Normal visualized stomach. Normal small intestine. Normal colon. The appendix is visualized and appears normal. Normal abdominal aorta. Normal inferior vena cava. Normal retroperitoneum. Normal urinary bladder. Small amount of free fluid is seen in the cul-de-sac. I suspect a regressing left ovarian follicle measuring 1.7 cm. Normal abdominal wall. Normal osseous structures. CT/Abdomen/Pelvis W IV Cont ONLY IMPRESSION: Small amount of free fluid is seen in the cul-de-sac. Findings suggestive of a dressing follicle in the left ovary. Nonobstructive punctate calculus in the left kidney. Electronically Signed: Mario Cramer MD at 14:07 EDT ,
--- NOTE | 2024-03-23 13:54 | ED.VIS.GI ---
HPI HPI - GI History of Present Illness Chief Complaint: Abd Pain Informant: patient Narrative Narrative: Patient is a 39-year-old female with prior history of ectopic (treated nonsurgically) and family history of diverticulitis presenting with worsening pain in her left lower quadrant. She states it started around 5 or 6 PM yesterday. It is worse with movements or if she gets any bumps in the road while driving. She notes her bowel moods been normal. Her last menstrual period was March 04 and she is not concerned for . She dates she maybe had a fever last night but does not have 1 today. She has some associated nausea with no vomiting. Denies any black or blood in her stool. Denies any radiation of pain. Tried a hot bath and Aleve with no relief of her symptoms. Now feels like the pain is worsening. Is concerned she may be has an ovarian cyst or may be something going on with her kidneys. Has no other complaints or concerns at this time. PFSH PFS Medical History Sinus tachycardia Palpitations Hypothyroidism Fatigue SOB (shortness of breath) Foreign body in left ear Bronchitis infertility procedures PCOS (polycystic ovarian syndrome) Environmental allergies Home Medications ?Medication ?Instructions ?Recorded ?Last Taken ?Type levothyroxine 100 mcg tablet 100 mcg PO DAILY 05/14/20 Unknown History metformin 500 mg tablet 500 mg PO DAILY 03/23/24 Unknown History Allergy/AdvReac Type Severity Reaction Status Date / Time No Known Allergies Allergy Verified 03/23/24 08:56 Family History Grandmother CVA (cerebral vascular accident) Heart disease Grandfather Heart disease Grandmother Valvular heart disease Atrial fibrillation Father Valvular heart disease History of aortic root repair Other Lung disease Myocardial infarction Surgical History H/O section Social History Smoking Status: Never smoker second hand exposure: No alcohol intake: never substance use type: does not use caffeine: Yes Type: carbonated beverages Number of servings: 1 and coffee Number of servings: 1 ROS ROS ED Constitutional Constitutional ED: Denies chills or fever(s) Cardiovascular Cardiovascular: Denies chest pain Respiratory/Chest Respiratory/Chest: Denies cough Gastrointestinal Gastrointestinal: Reports abdominal pain and nausea; Denies constipation, diarrhea, melena or vomiting Genitourinary Genitourinary ED: Denies dysuria, hematuria or urinary frequency Musculoskeletal Musculoskeletal: Denies back pain Integumentary Denies rash Neurologic Neurologic: Denies headache(s) Hematologic/Lymphatic Hematologic/Lymphatic: Denies easy bleeding or easy bruising EXAM Physical Exam Const Vital Signs: 03/23/24 08:57 03/23/24 10:54 03/23/24 12:00 Temperature 98 F 97.8 F Temperature Source Temporal Temporal Pulse Rate 97 80 88 Respiratory Rate 14 18 18 Blood Pressure 148/100 H 114/85 H 113/73 Blood Pressure Mean 116 94 86 Pulse Ox 98 97 98 Oxygen Delivery Method Room Air Room Air Room Air 03/23/24 14:00 03/23/24 15:12 Temperature 98.1 F Temperature Source Pulse Rate 80 72 Respiratory Rate 18 15 Blood Pressure 115/75 124/66 H Blood Pressure Mean 88 85 Pulse Ox 98 99 Oxygen Delivery Method Room Air Positive well nourished and well developed General Appearance ED: well developed HEENT Reports moist mucous membranes Eyes PERRL Neck supple Resp normal respiratory effort and clear to auscultation bilaterally GI non-distended Auscultation: normoactive bowel sounds Palpation: soft and tender LLQ; Negative for guarding or rigid Back/Spine no CVA tenderness Extremity General Extremety ED: Negative for edema General Extremity: Negative for edema Psych mental status grossly normal and thought process normal Skin no wounds MDM MDM MDM Narrative Medical decision making narrative: Patient is evaluated for about 24 hours left lower quadrant abdominal pain. No other systemic symptoms. On exam patient is well-appearing but is tender in the left lower quadrant on exam. Is not peritoneal. Initial vital signs are significant for mildly elevated blood pressure but this does improve while in the emergency room. Differential includes ovarian torsion, ectopic , ruptured ovarian cyst and less likely diverticulitis or renal colic. Will start with the lab work as well as pelvic ultrasound and treat the patient symptoms at this time with IV fluids, Zofran and morphine. Lab work largely unremarkable with a normal CBC and BMP as well as urinalysis. Serum is negative. Pelvic ultrasound does show minimal amount of free fluid in the cul-de-sac with no other acute process. Discussed with patient and while she is more comfortable she is having some continued pain and will obtain a CT of the abdomen pelvis for further evaluation of the cause of her pain. CT of the abdomen pelvis does not show any acute process but does show a small moderate free fluid again and findings suggestive of a progressing left ovarian follicle measuring 1.7 cm. It is possible that this might be attributing to her pain. At this time I do not think patient has an acute medical or surgical emergency and I think she stable for outpatient follow-up. She is agreeable this plan of care. She declines any prescription pain medication at this time. 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 Is given return precautions. Patient will alternate ibuprofen and Tylenol at home and is discharged home in stable condition. Lab Data Attestation: I reviewed the patient's lab results. Labs: Laboratory Results - last 24 hr 03/23/24 03/23/24 09:20 09:28 WBC 7.7 RBC 4.81 Hgb 14.6 Hct 43.7 MCV 90.9 MCH 30.4 MCHC 33.4 RDW Std Deviation 40.8 RDW Coeff of Lukas 12.2 Plt Count 264 MPV 9.8 Immature Gran % (Auto) 0.400 Neut % (Auto) 67.0 Lymph % (Auto) 21.5 [place] % (Auto) 7.8 Eos % (Auto) 2.7 Baso % (Auto) 0.6 Absolute Neuts (auto) 5.2 Absolute Lymphs (auto) 1.66 Nucleated RBC % 0 Sodium 137 Potassium 3.9 Chloride 106 Carbon Dioxide 26.0 Anion Gap 5 BUN 13 Creatinine 0.80 Estim Creat Clear Calc 93.09 Est GFR (MDRD) Af Amer 103 Est GFR (MDRD) Non-Af 85 BUN/Creatinine Ratio 16.3 Glucose 92 Calcium 9.1 Serum , Qual NEGATIVE Urine Color Yellow Urine Clarity Clear Urine pH 6.5 Ur Specific [place] 1.010 Urine Protein 15 H Urine Glucose (UA) Normal Urine Ketones 5 H Urine Occult Blood Negative Urine Nitrite Negative Urine Bilirubin Negative Urine Urobilinogen 1 H Ur Leukocyte Esterase Negative Urine RBC 0 SEEN Urine WBC 0 SEEN Ur Squamous Epith Cells 0-5 SEEN Urine Bacteria 0 SEEN Urine Mucus 0 SEEN Radiography Diagnostic Testing: Clinical Impression(s) from Imaging Studies Transvaginal US 03/23/24 10:13 IMPRESSION: Normal female pelvis. Minimal amount of free fluid is seen in the cul-de-sac. Electronically Signed: Mario Cramer MD at 12:11 EDT , Abdomen/Pelvis CT 03/23/24 13:37 IMPRESSION: Small amount of free fluid is seen in the cul-de-sac. Findings suggestive of a dressing follicle in the left ovary. Nonobstructive punctate calculus in the left kidney. Electronically Signed: Mario Cramer MD at 14:07 EDT , Discharge Plan Triage Chief Complaint: Abd Pain ED Provider: Shira Mcgrath Dx/Rx/DC Orders Clinical Impression: Abdominal pain, LLQ, Cyst of left ovary Instructions: ED Abdominal Pain Unkn Cause Fem, ED Ovarian Cyst Prescriptions: No Action levothyroxine 100 MCG tablet 100 mcg PO DAILY metformin 500 mg tablet 500 mg PO DAILY Primary Care Provider: Patrick Tejada Referrals: Patrick Tejada DO [Primary Care Provider] - Anna Franco MD [Med Staff - Active Staff] - As Needed Activity Restrictions/Additional Instructions: Your lab work was largely normal today. Your ultrasound showed some fluid in your pelvis as well as on your CT your CT also showed signs of regressing on ovarian follicle on the left which could be the cause of your pain. Please follow-up with BACKING IN MACHINE TENDER. Print Language: Slovak Disposition Disposition: Home, Self Care Discharge Date/Time: 03/23/24 15:15
[2024-03-23 14:00] VITALS: BP 115/75; PULSE 80; RESP 18; O2SAT 98
[2024-03-23 15:12] VITALS: BP 124/66; PULSE 72; RESP 15; TEMP 36.7; O2SAT 99
== END 2024-03-23 15:15 | disposition home or self-care (01) ==
PROVIDERS: Emergency Provider Emergency Medicine; PCP Student in an Organized Health Care Education/Training Program; Visit Provider Emergency Medicine
DX: N83.202 Unspecified ovarian cyst, left side (principal); R10.32 Left lower quadrant pain; N20.0 Calculus of kidney
CPT/HCPCS: 74177; 76830; 80048; 81001; 84703; 85025; 96361; 96374; 96375; 99282; J7030; Q9967; J2405